=== PATIENT | female | born 2000 | race Caucasian/White ===

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

== ENCOUNTER 2023-07-10 20:07 | Emergency (ER) | payer BC, OTHER ==
[2023-07-10] MEDS ORDERED: Sodium Chloride 0.9% 1,000 ML IV ONE (21:11)
[2023-07-10] MEDS ORDERED: Sodium Chloride 0.9% 10 ML Syringe FLUSH SCH (21:15)
[2023-07-10 21:28] LABS: BASOPHILS PERCENT AUTO 0.1 % (0.0-1.0); HEMATOCRIT 38.9 % (37.0-47.0); HEMOGLOBIN 13.2 g/dL (12.0-16.0); LYMPHOCYTES PERCENT AUTO 4.5 % (20.5-50.1); MEAN CORPUSCULAR HEMOGLOBIN 30.3 pg (27.0-34.0); MEAN CORPUSCULAR HGB CONC 33.9 g/dL (33.0-35.0); MEAN CORPUSCULAR VOLUME 89.2 fL (80-100); MONOCYTES PERCENT AUTO 5.5 % (2-8); NEUTROPHILS PERCENT AUTO 89.9 % (42.2-75.2); PLATELET COUNT,PLT 285 10^3/uL (150-450); RED BLOOD CELL COUNT 4.36 10^6/uL (4.2-5.4)
[2023-07-10 21:34] LABS: C-REACTIVE PROTEIN 14.85 ng/dL (<=0.30); MAGNESIUM 1.6 mg/dL (1.8-2.4)
[2023-07-10 21:38] LABS: A/G RATIO 0.8; ALBUMIN 3.4 g/dL (3.4-5.0); ANION GAP 17.4 mEq/L (7-13); BILIRUBIN TOTAL 0.4 mg/dL (0.2-1.0); BUN/CREATININE RATIO 8.2 (No establ ref range); CREATININE 0.97 mg/dL (0.55-1.02); EST CRCL DRUG DOSING (CG) 65.9 mL/min; POTASSIUM,K 3.4 mmol/L (3.5-5.1); PROTEIN TOTAL,TP 7.8 g/dL (6.4-8.2)
[2023-07-10 22:28] LABS: APPEARANCE,URINE CLEAR (CLEAR); BILIRUBIN,URINE NEGATIVE (NEGATIVE); COLOR,URINE YELLOW (YELLOW); GLUCOSE,URINE NEGATIVE (NEGATIVE); KETONES,URINE 40 (NEGATIVE); LEUKOCYTE ESTERASE,URINE NEGATIVE (NEGATIVE); NITRITE,URINE NEGATIVE (NEGATIVE); OCCULT BLOOD,URINE NEGATIVE (NEGATIVE); PROTEIN,URINE 100 (NEGATIVE); UROBILINOGEN,URINE 0.2 mg/dL (0.2-1.0)
[2023-07-10 23:35] LABS: BACTERIA,URINE MODERATE /HPF (0-FEW/HPF); EPITHELIAL CELLS,URINE MODERATE /HPF (NOT SEEN); MUCUS,URINE MANY /LPF (NOT SEEN); RBC,URINE 0-5 /HPF (0-5); WBC,URINE 0-5 /HPF (0-5/HPF)
[2023-07-10] MEDS ORDERED: Acetaminophen 325 MG Tab PO ONE (23:45)
[2023-07-10] MEDS ORDERED: Lactated Ringers 1,000 ML IV ONE (23:48)
[2023-07-11 01:00] LABS: LACTIC ACID 1.4 mmol/L (0.4-2.0)
== END 2023-07-11 01:12 | disposition home or self-care (01) ==
LOC: DL.ED 20:07
DX: J02.8 Acute pharyngitis due to other specified organisms (principal); Z91.09 Other allergy status, other than to drugs and biological substances
CPT/HCPCS: 36415; 80053; 81001; 83605; 83735; 85025; 86140; 86308; 87081; 87430; 96360; 96361; 99283; 99283-25; A9270-GY; J3490; J7030; J7120